=== PATIENT | male | born 1995 | race Caucasian/White ===

== ENCOUNTER → 2016-12-16 | Outpatient (CLI) | payer OTHER ==
[~2016-12-16] MED LIST: ALBU1AER9; GADAVIST IV PRN
--- NOTE | 2016-12-16 12:06 | DIAGNOSTIC IMAGING REPORT ---
RIGHT SHOULDER INJECTION UNDER FLUOROSCOPIC GUIDANCE CLINICAL HISTORY: Right shoulder pain and instability. History of shoulder dislocations and previous shoulder surgery. Injection for MR arthrogram. PROCEDURE: The risks, benefits, and alternatives to the procedure were discussed with the patient. Written informed consent was obtained. The patient was placed supine on the fluoroscopy table, and a right shoulder injection was performed under fluoroscopic guidance. The area was prepped and draped in the usual sterile fashion. The skin and soft tissues anesthetized with local 1% lidocaine. The right shoulder joint was accessed utilizing a 22-gauge needle, and approximately 5 cc of a mixture of gadolinium contrast, Optiray 300, and saline was injected into the joint space under fluoroscopic guidance. There was normal distention of the capsule. The procedure was well tolerated and without immediate complication. The patient was then transferred to MRI for MR arthrography. FLUOROSCOPY TIME: 0.1 minutes. IMPRESSION: Unremarkable injection of the right shoulder under fluoroscopic guidance. Electronically signed by: Josiah Penaloza M.D. 12/16/2016 12:05 PM Dictated Date/Time: 12/16/2016 12:02 PM
--- NOTE | 2016-12-16 16:07 | DIAGNOSTIC IMAGING REPORT ---
MR ARTHROGRAM OF THE RIGHT SHOULDER CLINICAL HISTORY: Right shoulder pain. History of right shoulder surgery and shoulder dislocations. COMPARISON STUDY: No priors. TECHNIQUE: An unenhanced coronal T1 sequence of the shoulder is performed. Subsequently, following the intra-articular administration of gadolinium contrast MR arthrogram of the right shoulder was performed utilizing various T1 and T2 weighted sequences in the axial, sagittal, coronal planes. Note that interpretation is suboptimal without plain film correlate. FINDINGS: Rotator cuff: The supraspinatus and intraspinous tendons are preserved. The teres minor and subscapularis tendons are intact. There is no subacromial or subdeltoid bursal fluid. The acromioclavicular joint is unremarkable. Biceps tendon: The long head of the biceps tendon is normal in signal intensity and located within the bicipital groove. The anchor is maintained. Labrum: The superior labrum appears intact noting a labral foramen. There is truncation of the inferior labrum, likely related to previous surgery. There is also mild fraying of the anterior and posterior labrum, likely related to chronic tearing. Shoulder joint: There is no joint effusion. The joint space is well distended with intra-articular contrast. The articular cartilage over the glenoid is well maintained. Postoperative change is noted in the glenoid. There is no MRI evidence of fracture. A chronic Hill-Sachs lesion is suspected in the posterior humeral head. There is subchondral cyst formation at this site. Musculature and soft tissues: The musculature of the shoulder is normal in bulk and signal intensity. No atrophy is seen. IMPRESSION: 1. The rotator cuff is intact. 2. Postoperative change is seen in the glenoid. There is truncation of the anterior labrum, possibly on a postoperative basis. Correlation the patient's surgical history will be required. 3. There is mild fraying of the anterior and posterior labrum, likely related to postoperative change and the sequelae of previous trauma. 4. A Hill-Sachs lesion with subchondral cyst formation is noted in the posterior humeral head. Electronically signed by: Josiah Penaloza M.D. 12/16/2016 4:05 PM Dictated Date/Time: 12/16/2016 12:27 PM
== END | disposition home or self-care (01) ==
LOC: C.MRIBC 10:48
PROVIDERS: ATTEND Orthopaedic Surgery Sports Medicine
DX: M25.311 Other instability, right shoulder (principal)

== ENCOUNTER 2018-02-28 05:55 | Emergency (ER) | payer SELFPAY ==
[~2018-02-28] VITALS: Ht 180.3 cm; Wt 79.9 kg
[~2018-02-28 05:55] MED LIST changes: -ALBU1AER9; +ASPI-390 PO; +FRCT/ PO; -GADAVIST IV PRN; +ONDA4TAB10 SL
[2018-02-28 06:02] VITALS: TEMP 36.5; Ht 180.3 cm; Wt 79.9 kg
[2018-02-28] MEDS ORDERED: ONDANSETRON INJ 2 MG/ML 2 ML VIAL IV STA (06:11)
[2018-02-28 06:23] LABS: BASO % 0.3 %; BASO ABS # 0.04 K/uL (0-0.2); EOS % 2.4 %; EOS ABS # 0.27 K/uL (0-0.5); HEMATOCRIT 43.7 % (42-52); HEMOGLOBIN 16.2 g/dL (14.0-18.0); IG# 0.02 K/uL (0.00-0.02); LYMPH ABS # 3.77 K/uL (1.2-3.4); MEAN CORPUSCULAR HEMOGLOBIN 31.5 pg (25-34); MEAN CORPUSCULAR HGB CONC 37.1 g/dl (32-36); MEAN PLATELET VOLUME 10.2 fL (7.4-10.4); MONO % 8.3 %; MONO ABS # 0.95 K/uL (0.11-0.59); NEUT % 55.8 %; NEUT ABS # 6.38 K/uL (1.4-6.5); PLATELET COUNT 217 K/uL (130-400); RED CELL DISTRIBUTION WIDTH CV 11.8 % (11.5-14.5); RED CELL DISTRIBUTION WIDTH SD 36.8 fL (36.4-46.3); WHITE BLOOD COUNT 11.43 K/uL (4.8-10.8)
[2018-02-28] MEDS ORDERED: METOCLOPRAMIDE HCL INJ 5 MG/ML 2 ML VIAL IV. STA (06:42)
[2018-02-28] MEDS ORDERED: SODIUM CHLORIDE 0.9% 1000ML 2,000 ML IV STA (06:42)
[2018-02-28] MEDS ORDERED: FAMOTIDINE 20MG/5ML IV PUSH IV STA (06:42)
[2018-02-28 06:47] LABS: ALBUMIN 3.8 gm/dl (3.4-5.0); CALCIUM 9.1 mg/dl (8.5-10.1); CREATININE 0.99 mg/dl (0.60-1.40); POTASSIUM 3.5 mmol/L (3.5-5.1); TOTAL PROTEIN 6.7 gm/dl (6.4-8.2)
--- NOTE | 2018-02-28 07:18 | EMERGENCY ROOM VISIT NOTE ---
History Report prepared by Sanjuanita: Ney Glaser Under the Supervision of: Dr. Liborio Ibrahim M.D. First contact with patient: 06:35 Chief Complaint: ABDOMINAL PAIN Stated Complaint: ABD PAIN Nursing Triage Summary: Pt presents with c/o constant RUQ abd pain and nausea since last night 2200. Pt states has had similar pain in the past, was told he has pancreatitis. Pt states he "rarely" drinks alcohol. History of Present Illness The patient is a 22 year old male who presents to the Emergency Room with complaints of constant abdominal pain that began last night at 2200, 8 hours ago. The patient states that the pain is mostly in the right upper quadrant. He is also complaining of nausea with "hot and cold sweats." There has not been any vomiting or diarrhea, but he feels like he could have a diarrhea bowel movement. The patient notes that he has had similar symptoms in the past and was told that he had pancreatitis. He had the most recent episode of these symptoms 2-3 months ago. The patient denies drinking heavily recently, but he does admit to smoking marijuana daily. Source of History: patient Onset: 8 hours ago Position: abdomen (RUQ) Quality: other (patient notes similar to previous pancreatitis episode) Timing: constant Associated Symptoms: + fevers, + chills, + diaphoresis, + nausea, No vomiting, No diarrhea Review of Systems See HPI for pertinent positives and negatives. A total of ten systems were reviewed and were otherwise negative. Past Medical & Surgical Medical Problems: (1) Asthma Surgical Problems: (1) Hx of shoulder surgery (2) Hx of tonsillectomy Family History Cancer Diabetes mellitus Heart disease Hypertension Lung disease Social History Smoking Status: Current Every Day Smoker Alcohol Use: occasionally Drug Use: marijuana Marital Status: single Housing Status: lives with family Occupation Status: student Current/Historical Medications Scheduled Fntoxyy-Tgefdelfxfbvh-Jiybdtdq (Excedrin Migraine), 1 TAB PO DIRECTED Famotidine (Pepcid), 20 MG PO BID Ondasetron Odt (Zofran Odt), 4 MG SL TID Scheduled PRN Acetamin/Butalbital/Caffeine (Fioricet), 1 TAB PO TID PRN for Headache Allergies Coded Allergies: Penicillins (Unverified Allergy, Mild, HIVES RESPIRATORY DIFFICULTY, ) Physical Exam Vital Signs Date Time Temp Pulse Resp B/P (MAP) Pulse Ox O2 Delivery O2 Flow Rate FiO2 02/28/18 08:16 67 16 132/61 97 Room Air 02/28/18 07:17 64 16 125/68 96 Room Air 02/28/18 06:02 36.5 86 18 146/77 98 Room Air Physical Exam GENERAL: Awake, alert, fatigued and uncomfortable-appearing, in no distress. HENT: Normocephalic, atraumatic. Oropharynx unremarkable. Mucous membranes are dry. EYES: Normal conjunctiva. Sclera non-icteric. NECK: Supple. No nuchal rigidity. FROM. No JVD. RESPIRATORY: Clear to auscultation. CARDIAC: Regular rate, normal rhythm. Extremities warm and well perfused. Pulses equal. ABDOMEN: Soft, non-distended. Mild epigastric and RUQ tenderness to palpation. No rebound or guarding. No masses. RECTAL: Deferred. MUSCULOSKELETAL: Chest examination reveals no tenderness. The back is symmetrical on inspection without obvious abnormality. There is no CVA tenderness to palpation. No joint edema. LOWER EXTREMITIES: Calves are equal size bilaterally and non-tender. No edema. No discoloration. NEURO: Normal sensorium. No sensory or motor deficits noted. SKIN: No rash or jaundice noted. Medical Decision & Procedures ER Provider Diagnostic Interpretation: Radiology results as stated below per my review and radiologist interpretation: GALLBLADDER-ABD LIMITED CLINICAL HISTORY: RUQ pain, n/v pain. Nausea. TECHNIQUE: Ultrasound COMPARISON STUDY: None FINDINGS: Normal gallbladder. Common bile duct 5 mm. Liver is uniform throughout. Pancreas and right kidney are unremarkable. No evidence for renal hydronephrosis. IMPRESSION: Normal study The above report was generated using voice recognition software. It may contain grammatical, syntax or spelling errors. Electronically signed by: Eduard Mendez M.D. 02/28/2018 8:10 AM Dictated Date/Time: 02/28/2018 8:09 AM Laboratory Results 02/28/18 06:10 Red Blood Count 5.14, Mean Corpuscular Volume 85.0, Mean Corpuscular Hemoglobin 31.5, Mean Corpuscular Hemoglobin Concent 37.1, Mean Platelet Volume 10.2, Neutrophils (%) (Auto) 55.8, Lymphocytes (%) (Auto) 33.0, Monocytes (%) (Auto) 8.3, Eosinophils (%) (Auto) 2.4, Basophils (%) (Auto) 0.3, Neutrophils # (Auto) 6.38, Lymphocytes # (Auto) 3.77, Monocytes # (Auto) 0.95, Eosinophils # (Auto) 0.27, Basophils # (Auto) 0.04 02/28/18 06:10 Test 02/28/18 06:05 02/28/18 06:10 Urine Color YELLOW Urine Appearance CLEAR (CLEAR) Urine pH 6.5 (4.5-7.5) Urine Specific Welches 1.016 (1.000-1.030) Urine Protein NEG (NEG) Urine Glucose (UA) NEG (NEG) Urine Ketones NEG (NEG) Urine Occult Blood NEG (NEG) Urine Nitrite NEG (NEG) Urine Bilirubin NEG (NEG) Urine Urobilinogen NEG (NEG) Urine Leukocyte Esterase SMALL (NEG) Urine WBC (Auto) 1-5 /hpf (0-5) Urine RBC (Auto) 0-4 /hpf (0-4) Urine Hyaline Casts (Auto) 0 /lpf (0-5) Urine Epithelial Cells (Auto) 5-10 /lpf (0-5) Urine Bacteria (Auto) NEG (NEG) White Blood Count 11.43 K/uL (4.8-10.8) Red Blood Count 5.14 M/uL (4.7-6.1) Hemoglobin 16.2 g/dL (14.0-18.0) Hematocrit 43.7 % (42-52) Mean Corpuscular Volume 85.0 fL (80-100) Mean Corpuscular Hemoglobin 31.5 pg (25-34) Mean Corpuscular Hemoglobin Concent 37.1 g/dl (32-36) Platelet Count 217 K/uL (130-400) Mean Platelet Volume 10.2 fL (7.4-10.4) Neutrophils (%) (Auto) 55.8 % Lymphocytes (%) (Auto) 33.0 % Monocytes (%) (Auto) 8.3 % Eosinophils (%) (Auto) 2.4 % Basophils (%) (Auto) 0.3 % Neutrophils # (Auto) 6.38 K/uL (1.4-6.5) Lymphocytes # (Auto) 3.77 K/uL (1.2-3.4) Monocytes # (Auto) 0.95 K/uL (0.11-0.59) Eosinophils # (Auto) 0.27 K/uL (0-0.5) Basophils # (Auto) 0.04 K/uL (0-0.2) RDW Standard Deviation 36.8 fL (36.4-46.3) RDW Coefficient of Variation 11.8 % (11.5-14.5) Immature Granulocyte % (Auto) 0.2 % Immature Granulocyte # (Auto) 0.02 K/uL (0.00-0.02) Anion Gap 7.0 mmol/L (3-11) Est Creatinine Clear Calc Drug Dose 125.6 ml/min Estimated GFR () 125.7 Estimated GFR (Non- 108.4 BUN/Creatinine Ratio 20.4 (10-20) Calcium Level 9.1 mg/dl (8.5-10.1) Total Bilirubin 0.6 mg/dl (0.2-1) Aspartate Amino Transf (AST/SGOT) 15 U/L (15-37) Alanine Aminotransferase (ALT/SGPT) 36 U/L (12-78) Alkaline Phosphatase 74 U/L (45-117) Total Protein 6.7 gm/dl (6.4-8.2) Albumin 3.8 gm/dl (3.4-5.0) Globulin 2.9 gm/dl (2.5-4.0) Albumin/Globulin Ratio 1.3 (0.9-2) Lipase 125 U/L (73-393) Laboratory results reviewed by me Medications Administered Medications (Trade) Dose Ordered Sig/Afsaneh Route Start Time Stop Time Status Last Admin Dose Admin Ondansetron HCl (Zofran Inj) 4 mg NOW STAT IV 02/28/18 06:11 02/28/18 06:12 DC 02/28/18 06:18 4 MG Sodium Chloride 2,000 ml @ 999 mls/hr Q2H1M STAT IV 02/28/18 06:42 02/28/18 08:42 DC 02/28/18 07:04 999 MLS/HR Famotidine (Pepcid 20mg Iv Push) 20 mg ONE STAT IV 02/28/18 06:42 02/28/18 06:44 DC 02/28/18 06:42 20 MG Metoclopramide HCl (Reglan Inj) 10 mg NOW STAT IV. 02/28/18 06:42 02/28/18 06:44 DC 02/28/18 06:42 10 MG Procedure BEDSIDE GALLBLADDER US: Bedside ultra sound of the gallbladder reveals no gross gallstones. Question gallbladder wall thickening. Grossly normal CBD. ED Course 0639: The patient was evaluated in room A10. A complete history and physical exam was performed. 0650: I performed a bedside ultra sound at this time. See procedure note for further findings. 0817: I reevaluated the patient. Discussed results and discharge instructions: He verbalized understanding and agreement. The patient is ready for discharge. Medical Decision I reviewed the patient's past medical history, medications, and the nursing notes as described above. Differential diagnosis: Etiologies such as appendicitis, diverticulitis, PUD, biliary pathology, UTI, pancreatitis, obstruction, mesenteric ischemia, aortic pathology, infections, inflammatory bowel disease, renal colic, as well as others were entertained. The patient is a 22-year-old gentleman who presents emergency department with upper abdominal pain with nausea and vomiting starting at 10 PM last night per hpi. On arrival the patient is fatigued and uncomfortable but no acute distress , afebrile stable vital signs. On exam, the patient has mild upper and right upper quadrant tenderness with no peritoneal signs. WBC 11, nonspecific. Chemistry otherwise unremarkable without acidosis, transaminitis, or elevated lipase. Outside ultrasound shows enlarged gallbladder without gallstones but question gallbladder wall thickening. Formal right upper quadrant ultrasound was unremarkable. Patient feeling improved after IV fluid hydration, Reglan, Pepcid. Given reassuring workup symptoms most likely related to gastritis. Plan for Pepcid with Mylanta/Tums as needed and PCP follow-up. Findings and plan for follow-up reviewed with patient. Patient agreeable and d/c'd per discharge instructions. Medication Reconcilliation Current Medication List: was personally reviewed by me Blood Pressure Screening Patient's blood pressure: Elevated blood pressure Blood pressure disposition: Elevated BP felt to be situational Impression Primary Impression: Upper abdominal pain Additional Impressions: Nausea Gastritis Scribe Attestation The scribe's documentation has been prepared under my direction and personally reviewed by me in its entirety. I confirm that the note above accurately reflects all work, treatment, procedures, and medical decision making performed by me. Departure Information Dispostion Home / Self-Care Prescriptions Famotidine (PEPCID) 20 Mg Tab 20 MG PO BID for 7 Days, #14 TAB Prov: Liborio Ibrahim M.D. 02/28/18 Referrals No Doctor, Assigned (PCP) Patient Instructions ED Abdominal Pain Unkn Cause Male, ED Gastritis, [facility] Additional Instructions Please follow up with and establish care with a primary care physician in the next week for re-evaluation. The cause of your symptoms is most likely due to reflux/gastritis. Otherwise, your exam, lab results, and ultrasound did not show signs of an emergent condition at this time. Acetaminophen for pain and fevers as needed. Continue your Zofran as needed for nausea. Pepcid as needed for GI upset/acid reduction. [id number] Mylanta or TUMS for additional acid relief as needed. Drink plenty of fluids to ensure hydration. Return to the emergency department for worsening symptoms as described in the accompanying instructions. Problem Qualifiers
--- NOTE | 2018-02-28 08:11 | DIAGNOSTIC IMAGING REPORT ---
GALLBLADDER-ABD LIMITED CLINICAL HISTORY: RUQ pain, n/v pain. Nausea. TECHNIQUE: Ultrasound COMPARISON STUDY: None FINDINGS: Normal gallbladder. Common bile duct 5 mm. Liver is uniform throughout. Pancreas and right kidney are unremarkable. No evidence for renal hydronephrosis. IMPRESSION: Normal study The above report was generated using voice recognition software. It may contain grammatical, syntax or spelling errors. Electronically signed by: Eduard Mendez M.D. 02/28/2018 8:10 AM Dictated Date/Time: 02/28/2018 8:09 AM
[2018-02-28 08:16] VITALS: BP 132/61; PULSE 67; O2SAT 97
[2018-02-28] MEDS ORDERED: GI COCKTAIL PO STA (08:17)
[2018-02-28] MEDS ORDERED: FAMO20TA9 PO (08:18)
[2018-02-28] MEDS ORDERED: ALUMINUM/MAGNESIUM SUSP 30 ML UDC ONE (08:23)
[2018-02-28] MEDS ORDERED: LIDOCAINE HCL 2% VISC SOLN 20 ML UDC ONE (08:23)
== END 2018-02-28 08:47 | disposition home or self-care (01) ==
LOC: C.EDB 05:57 → C.EDA 08:47
DX: K29.70 Gastritis, unspecified, without bleeding (principal); F17.200 Nicotine dependence, unspecified, uncomplicated; Z88.0 Allergy status to penicillin